=== PATIENT | female | born 1980 | race Caucasian/White ===

== ENCOUNTER 2017-07-07 21:17 | Emergency (ER) | payer BC, MEDICARE ==
[~2017-07-07] VITALS: Ht 162.6 cm; Wt 57.7 kg
[~2017-07-07 21:17] MED LIST: ACET500C5 PO; ESCI20TA PO; ONDA4TAB8 PO; TRAM50TA2 PO; [UNRECOGNIZED DRUG - OTHER] PO
[2017-07-07 21:21] VITALS: Ht 162.6 cm; Wt 57.7 kg
== END 2017-07-08 01:27 | disposition left against medical advice (07) ==
LOC: E/R 21:17
DX: Z53.21 Procedure and treatment not carried out due to patient leaving prior to being seen by health care provider (principal)

== ENCOUNTER 2018-04-21 08:55 | Emergency (ER) | END 2018-04-21 11:52 | disposition home or self-care (01) ==